=== PATIENT | female | born 1995 | race Caucasian/White ===

== ENCOUNTER 2016-11-27 23:37 | Outpatient (CLI) | payer OTHER ==
[2017-02-27] MEDS ORDERED: COLACE 100MG C100 MG PO (07:14)
== END 2016-11-28 03:33 | disposition home or self-care (01) ==
LOC: GENOP 23:37
DX: O42.912 Preterm premature rupture of membranes, unspecified as to length of time between rupture and onset of labor, second trimester (principal); Z3A.28 28 weeks gestation of pregnancy
CPT/HCPCS: 81001; 82731; 83518; G0463

== ENCOUNTER → 2020-09-18 | Outpatient (CLI) | payer OTHER ==
[~2020-09-18] MED LIST: COLACE 100MG C100 MG PO
== END ==
LOC: LAB 11:14
DX: R31.9 Hematuria, unspecified (principal)
CPT/HCPCS: 87086